=== PATIENT | female | born 1960 | race Caucasian/White ===

== ENCOUNTER 2023-12-26 20:14 | Emergency (ER) | payer OTHER ==
[2023-12-26] MEDS ORDERED: Morphine 2 MG/ML VIAL ONE (20:29)
[2023-12-26] MEDS ORDERED: Morphine 4 MG/ML VIAL ONE (20:29)
[2023-12-26] MEDS ORDERED: HYDROcodone/Acetaminophen 5/325 mg Tablet ONE (21:21)
== END 2023-12-26 21:44 | disposition home or self-care (01) ==
LOC: BURERS 20:14
DX: S82.831A Other fracture of upper and lower end of right fibula, initial encounter for closed fracture (principal); S52.571A Other intraarticular fracture of lower end of right radius, initial encounter for closed fracture; W18.30XA Fall on same level, unspecified, initial encounter
CPT/HCPCS: 29125; 29515; 96372; J2272